=== PATIENT | female | born 1970 | race Caucasian/White ===

== ENCOUNTER 2023-08-17 12:19 | Emergency (ER) | payer SELFPAY ==
[~2023-08-17] VITALS: Ht 165.1 cm; Wt 80.3 kg
[2023-08-17 13:07] LABS: BASO # 0.1 10*3/uL (0.0-0.1); BASO % 0.8 % (0.0-1.0); EOS # 0.1 10*3/uL (0.0-0.4); EOS % 0.9 % (1.0-4.0); HEMATOCRIT 41.3 % (37.0-47.0); LYMPH # 2.7 10*3/uL (1.3-4.4); LYMPH % 35.1 % (27.0-41.0); MEAN CELL VOLUME 89.4 fl (81.0-99.0); MEAN CORPUSCULAR HGB 28.8 pg (27.0-31.0); MEAN CORPUSCULAR HGB CONC 32.2 g/dl (33.0-37.0); MONO # 0.6 10*3/uL (0.1-1.0); MONO % 7.7 % (3.0-9.0); NEUT # 4.3 10*3/uL (2.3-7.9); NEUT % 55.5 % (47.0-73.0); PLATELET COUNT AUTOMATED 328 10*3/uL (130-400); RED BLOOD COUNT 4.62 10*6/uL (4.10-5.10); RED CELL DISTRI WIDTH 12.9 % (0-14.5); WHITE BLOOD COUNT 7.8 10*3/uL (4.8-10.8)
[2023-08-17 13:18] LABS: ACT PARTIAL THROMBO TIME 28.6 SECONDS (20.0-32.1)
[2023-08-17 13:34] LABS: BUN 13 mg/dl (9-23); CHLORIDE 106 mmol/L (98-107); POTASSIUM 4.2 mmol/L (3.4-5.1)
[2023-08-17] MEDS ORDERED: MG-AL HYDROXIDE/SIMETICONE 30 ML UDC PO STA (14:03)
[2023-08-17] MEDS ORDERED: Lidocaine Hydrochloride 15 ML UDC PO STA (14:03)
[2023-08-17] MEDS ORDERED: Dicyclomine Hydrochloride 20 MG/10 ML OSYR PO STA (14:03)
[2023-08-17] MEDS ORDERED: PROTONIX40 MG PO (16:07)
== END 2023-08-17 16:37 | disposition home or self-care (01) ==
LOC: ED 12:19
PROVIDERS: Nurse Practitioner
DX: K21.9 Gastro-esophageal reflux disease without esophagitis (principal); R07.89 Other chest pain; Z88.1 Allergy status to other antibiotic agents; Z88.5 Allergy status to narcotic agent; Z87.891 Personal history of nicotine dependence